=== PATIENT | male | born 1995 | race Hispanic/Latino ===

== ENCOUNTER 2020-05-20 10:29 | Emergency (ER) | payer SELFPAY ==
[2020-05-20] MEDS ORDERED: Sodium Bicarb 50 MEQ/50 ML Abboject 8.4% SYRINGE ONE (10:34)
[2020-05-20 11:40] LABS: #Basophils 0.1 thou/uL (0.0-0.2); #Monocytes 0.9 thou/uL (0.11-0.59); #Neutrophils 12.7 thou/uL (1.40-6.50); %Basophils 0.4 % (0.0-1.0); %Eosinophils 0.2 % (0.0-10.0); %Monocytes 5.5 % (0.0-10.0); %Neutrophils 80.9 % (42.0-75.0); Hemoglobin 15.1 g/dL (14.0-18.0); Mean Corpuscular HGB CONC 34.6 g/dL (32.0-36.0); Mean Corpuscular Hemoglobin 30.1 pg (27.0-31.0); Mean Corpuscular Volume 87.1 fL (78.0-98.0); Mean Platelet Volume 8.6 fL (7.4-10.4); Platelet Count 194 thou/uL (130-400); RBC Distribution Width 11.1 % (11.5-14.5); Red Blood Cell (RBC) Count 5.02 mill/uL (4.70-6.10); White Blood Cell (WBC) Count 15.6 thou/uL (4.8-10.8)
[2020-05-20 12:01] LABS: ALT (SGPT) 18 U/L (8-55); AST (SGOT) 17 U/L (5-34); Albumin 4.5 g/dL (3.5-5.0); Alkaline Phosphatase 68 U/L (40-110); Anion Gap 16 mmol/L (10-20); BUN (Urea Nitrogen) 14 mg/dL (8.9-20.6); CK (CPK) 92 U/L (30-200); Calc. Creatinine Clearance 0 mL/min (70-130); Calcium 9.2 mg/dL (7.8-10.44); Carbon Dioxide 26 mmol/L (22-29); Globulin 3.1 g/dL (2.4-3.5); Glucose 97 mg/dL (70-105); Potassium 3.5 mmol/L (3.5-5.1); Protein, Total 7.6 g/dL (6.0-8.3)
[2020-05-20 12:15] LABS: Chloride 101 mmol/L (98-107); Sodium 139 mmol/L (136-145)
[2020-05-20] MEDS ORDERED: Azithromycin 250 MG TAB ONE (12:26)
[2020-05-20] MEDS ORDERED: cefTRIAXone\\ROCEPHIN 2 GM VIAL ONE (12:26)
--- NOTE | 2020-05-20 12:46 | RAD ---
PORTABLE CHEST: HISTORY: Productive cough and congestion. The patient is COVID positive. FINDINGS: Heart size and mediastinum are within normal limits. The lungs appear clear of any infiltrative proc ess. Ground-glass infiltrates are difficult to totally exclude. IMPRESSION: No active intrathoracic disease. POS: AH
[2020-05-20 17:07] LABS: SARS-CoV-2 MS2 Positive; SARS-CoV-2 N Gene Positive; SARS-CoV-2 S Gene Positive; SARS-CoV-2 by NAA DETECTED (NotDetected); SARS-CoV-2 orf1ab Positive
--- NOTE | 2020-05-22 11:13 | EKG ---
Test Reason : Blood Pressure : / mmHG Vent. Rate : 101 BPM Atrial Rate : 101 BPM P-R Int : 142 ms QRS Dur : 122 ms QT Int : 342 ms P-R-T Axes : 057 016 037 degrees QTc Int : 443 ms Sinus tachycardia RSR' or QR pattern in V1 suggests right ventricular conduction delay Nonspecific T wave abnormality Abnormal ECG Confirmed by STEVEN CARCAMO DO ([id number]), video editor TALYA FRAZIER ([id number] on 05/22/2020 11:13:10 AM Referred By: Confirmed By:STEVEN CARCAMO DO
== END 2020-05-20 13:01 | disposition home or self-care (01) ==
LOC: ERS 10:29
DX: U07.1 COVID-19 (principal); J12.89 Other viral pneumonia; E11.9 Type 2 diabetes mellitus without complications
CPT/HCPCS: 71045; 80053; 82550; 83605; 85025; 85379; 87635; 93005; 96365; J0696; U0003

== ENCOUNTER 2020-08-20 07:21 | Emergency (ER) | payer OTHER, SELFPAY ==
[2020-08-20] MEDS ORDERED: Albuterol 200 PUFF (6.7GM INHALER) ONE (07:51)
[2020-08-20] MEDS ORDERED: methylPREDNISolone Sod Succ/PF 125 MG/2 ML VIAL ONE (07:56)
[2020-08-20 07:59] LABS: #Eosinphils 0.1 thou/uL (0.0-0.7); #Lymphocytes 1.2 thou/uL (1.20-3.40); #Monocytes 0.5 thou/uL (0.11-0.59); #Neutrophils 9.4 thou/uL (1.40-6.50); %Basophils 0.3 % (0.0-1.0); %Eosinophils 0.7 % (0.0-10.0); %Lymphocytes 10.4 % (21.0-51.0); %Monocytes 4.6 % (0.0-10.0); %Neutrophils 83.9 % (42.0-75.0); Hemoglobin 15.2 g/dL (14.0-18.0); Mean Corpuscular HGB CONC 34.8 g/dL (32.0-36.0); Mean Corpuscular Hemoglobin 30.5 pg (27.0-31.0); Mean Corpuscular Volume 87.7 fL (78.0-98.0); Mean Platelet Volume 8.3 fL (7.4-10.4); Platelet Count 189 thou/uL (130-400); RBC Distribution Width 11.9 % (11.5-14.5); Red Blood Cell (RBC) Count 4.97 mill/uL (4.70-6.10); White Blood Cell (WBC) Count 11.2 thou/uL (4.8-10.8)
[2020-08-20] MEDS ORDERED: cefTRIAXone\\ROCEPHIN 2 GM VIAL ONE (08:14)
[2020-08-20 08:21] LABS: ALT (SGPT) 39 U/L (8-55); AST (SGOT) 24 U/L (5-34); Albumin 4.6 g/dL (3.5-5.0); Alkaline Phosphatase 84 U/L (40-110); Anion Gap 12 mmol/L (10-20); BUN (Urea Nitrogen) 13 mg/dL (8.9-20.6); Bilirubin, Total 0.9 mg/dL (0.2-1.2); CK (CPK) 141 U/L (30-200); Calc. Creatinine Clearance 0 mL/min (70-130); Calcium 9.4 mg/dL (7.8-10.44); Carbon Dioxide 27 mmol/L (22-29); Chloride 102 mmol/L (98-107); Globulin 2.6 g/dL (2.4-3.5); Glucose 138 mg/dL (70-105); Potassium 3.7 mmol/L (3.5-5.1); Protein, Total 7.2 g/dL (6.0-8.3); Sodium 137 mmol/L (136-145)
[2020-08-20] MEDS ORDERED: Azithromycin 500 MG in Sodium Chloride 0.9% 250 ML 250 ML IVPB SCH (08:45)
== END 2020-08-20 10:35 | disposition home or self-care (01) ==
LOC: ERS 07:21
DX: J98.01 Acute bronchospasm (principal); Z87.01 Personal history of pneumonia (recurrent)
CPT/HCPCS: 36415; 71045; 80053; 82550; 83605; 83880; 84443; 84484; 85025; 85379; 87040; 94664; 96365; 96367; 96375; J0456; J0696; J2930; J7050

== ENCOUNTER 2020-12-28 11:09 | Outpatient (CLI) | payer OTHER | END 2020-12-28 11:10 | disposition home or self-care (01) | LOC: BICRAD 11:09 | PROVIDERS: ATTEND Internal Medicine Pulmonary Disease | DX: R06.00 Dyspnea, unspecified (principal) | CPT/HCPCS: 71046 ==